=== PATIENT | male | born 1990 | race Caucasian/White ===

== ENCOUNTER 2019-01-19 12:32 | Emergency (ER) | payer SELFPAY ==
[~2019-01-19] VITALS: Ht 172.7 cm; Wt 90.7 kg
[~2019-01-19 12:32] MED LIST: ALBU90OI INH; AZIT250 PO; CITA20 PO; DIPH25 PO; ESCI10 PO; IBUP400 PO; PROM25 PO
[2019-01-19] MEDS ORDERED: Indomethacin50 MG PO ×2 (12:45→12:47)
[2019-01-19] MEDS ORDERED: PRED10 PO (12:47)
== END 2019-01-19 12:51 | disposition home or self-care (01) ==
LOC: ER 12:32
DX: M10.9 Gout, unspecified (principal); F17.200 Nicotine dependence, unspecified, uncomplicated; Z88.2 Allergy status to sulfonamides

== ENCOUNTER 2019-04-14 09:53 | Emergency (ER) | payer OTHER ==
[~2019-04-14] VITALS: Ht 172.7 cm; Wt 90.7 kg
[~2019-04-14 09:53] MED LIST changes: +Indomethacin50 MG PO; +PRED10 PO
[2019-04-14] MEDS ORDERED: LIDO700A20 TOP (10:57)
[2019-04-14] MEDS ORDERED: Robaxin-750750 MG PO (10:57)
== END 2019-04-14 11:02 | disposition home or self-care (01) ==
LOC: ER 09:53
DX: S20.212A Contusion of left front wall of thorax, initial encounter (principal); V19.9XXA Pedal cyclist (driver) (passenger) injured in unspecified traffic accident, initial encounter; Z88.2 Allergy status to sulfonamides; Z79.899 Other long term (current) drug therapy; Z79.52 Long term (current) use of systemic steroids; F17.200 Nicotine dependence, unspecified, uncomplicated
CPT/HCPCS: 71101; 99283-25

== ENCOUNTER → 2019-04-30 | Outpatient (CLI) | payer OTHER ==
[~2019-04-30] MED LIST changes: +LIDO700A20 TOP; +Robaxin-750750 MG PO
== END ==
LOC: LAB SHORT 13:31 → LAB EV 13:31
DX: M25.532 Pain in left wrist (principal)
CPT/HCPCS: 84550

== ENCOUNTER → 2019-06-09 | Outpatient (CLI) | payer OTHER ==
[~2019-06-09] MED LIST changes: +ALLO100; +CEPH500 PO; +Indomethacin25 MG PO; +MUPIROCIN15 GM TOP
[2019-06-09 09:47] LABS: BASOPHILS ABSOLUTE AUTO 0.06 K/mm3 (0.00-0.23); BASOPHILS PERCENT AUTO 1 % (0-2); EOSINOPHILS ABSOLUTE AUTO 0.34 K/mm3 (0.00-0.68); EOSINOPHILS PERCENT AUTO 5 % (0-6); Hematocrit 41.5 % (37.0-53.0); Hemoglobin 14.1 g/dL (13.5-17.5); IMMATURE GRAN ABSOLUTE AUTO 0.01 K/mm3 (0.00-0.10); IMMATURE GRAN PERCENT AUTO 0 % (0-1); LYMPHOCYTES ABSOLUTE AUTO 2.28 K/mm3 (0.84-5.20); LYMPHOCYTES PERCENT AUTO 30 % (21-46); MONOCYTES ABSOLUTE AUTO 0.81 K/mm3 (0.16-1.47); MONOCYTES PERCENT AUTO 11 % (4-13); Mean Corpuscular Volume 85 fL (80-100); Mean Platelet Volume 11.2 fL (9.1-12.4); NEUTROPHILS ABSOLUTE AUTO 4.12 K/mm3 (1.96-9.15); NEUTROPHILS PERCENT AUTO 54 % (41-73); Platelet Count 367 K/mm3 (150-400); RDW Coefficient Variation 12.8 % (11.7-14.2); RDW Standard Deviation 39.1 fL (35.1-46.3); Red Blood Cell Count 4.86 M/mm3 (4.30-5.90); White Blood Cell Count 7.62 K/mm3 (4.00-11.30)
[2019-06-09 10:01] LABS: Alanine Aminotransfer (ALT/SGP 31 U/L (12-78); Albumin, Blood 3.9 g/dL (3.4-5.0); Alk Phos 101 U/L (40-126); Anion Gap 12 mmol/L (6-16); Aspartate Aminotrans (AST/SGOT 20 U/L (12-37); Bilirubin, Total 0.3 mg/dL (0.1-1.0); Blood Urea Nitrogen 11 mg/dL (8-24); Bun/Creatinine Ratio 10.6 (12.0-20.0); CO2, Blood 24 mmol/L (21-32); Calcium, Blood 8.9 mg/dL (8.5-10.1); Chloride, Blood 104 mmol/L (98-108); Creatinine, Blood 1.04 mg/dL (0.60-1.20); Globulin, Blood 4.1 g/dL (2.2-4.0); Glomerular Filtration Rate >60 (60-); Glucose, Blood 100 mg/dL (70-99); Potassium, Blood 4.3 mmol/L (3.5-5.5); Sodium, Blood 140 mmol/L (136-145)
== END | disposition home or self-care (01) ==
LOC: LAB EV 09:41 → LAB SHORT 09:41
PROVIDERS: General Practice
DX: M10.9 Gout, unspecified (principal)
CPT/HCPCS: 80053; 85025

== ENCOUNTER → 2019-06-12 | Outpatient (CLI) | payer OTHER ==
[2019-06-12 18:12] LABS: Uric Acid, Urine 28.7 mg/dL (7.5-49.5)
== END | disposition home or self-care (01) ==
LOC: LAB 17:29 → LAB SHORT 17:29
PROVIDERS: General Practice
DX: M10.9 Gout, unspecified (principal)
CPT/HCPCS: 81050; 84560

== ENCOUNTER 2019-07-29 15:28 | Emergency (ER) | payer OTHER ==
[~2019-07-29] VITALS: Ht 170.2 cm; Wt 77.1 kg
[~2019-07-29 15:28] MED LIST changes: -ALLO100; -CEPH500 PO; -Indomethacin25 MG PO; -MUPIROCIN15 GM TOP
[2019-07-29] MEDS ORDERED: ALLO100 (16:00)
[2019-07-29] MEDS ORDERED: Indomethacin25 MG PO (16:00)
[2019-07-29] MEDS ORDERED: CEPH500 PO (16:06)
[2019-07-29] MEDS ORDERED: MUPIROCIN15 GM TOP (16:06)
== END 2019-07-29 16:27 | disposition home or self-care (01) ==
LOC: ER 15:28
DX: L60.0 Ingrowing nail (principal); Z87.891 Personal history of nicotine dependence; Z88.2 Allergy status to sulfonamides; Z79.899 Other long term (current) drug therapy
CPT/HCPCS: 99283

== ENCOUNTER 2019-12-10 19:51 | Emergency (ER) | payer OTHER ==
[~2019-12-10] VITALS: Ht 160 cm; Wt 89.8 kg
[~2019-12-10 19:51] MED LIST changes: +ALLO100; +CEPH500 PO; +Indomethacin25 MG PO; +MUPIROCIN15 GM TOP
[2019-12-10] MEDS ORDERED: ALLO100 PO (20:25)
[2019-12-10] MEDS ORDERED: HYDROCODONE-AC1 EAC1 PO (20:25)
[2019-12-10] MEDS ORDERED: Prednisone20 MG PO (20:54)
[2019-12-10] MEDS ORDERED: Indomethacin50 MG PO (20:54)
== END 2019-12-10 21:05 | disposition home or self-care (01) ==
LOC: ER 19:51
DX: M41.9 Scoliosis, unspecified (principal); Z88.2 Allergy status to sulfonamides; Z79.52 Long term (current) use of systemic steroids; Z79.899 Other long term (current) drug therapy; Z87.891 Personal history of nicotine dependence
CPT/HCPCS: 99283; J7512

== ENCOUNTER 2019-12-14 02:10 | Emergency (ER) | payer OTHER ==
[~2019-12-14] VITALS: Ht 172.7 cm; Wt 89.8 kg
[~2019-12-14 02:10] MED LIST changes: +ALLO100 PO; +HYDROCODONE-AC1 EAC1 PO; +Prednisone20 MG PO
== END 2019-12-14 04:45 | disposition home or self-care (01) ==
LOC: ER 02:10
DX: S61.012A Laceration without foreign body of left thumb without damage to nail, initial encounter (principal); Z88.2 Allergy status to sulfonamides; M10.9 Gout, unspecified; Z23 Encounter for immunization; Z79.52 Long term (current) use of systemic steroids; Z87.891 Personal history of nicotine dependence; W26.0XXA Contact with knife, initial encounter
CPT/HCPCS: 12001; 90471; 90714; 99282-25

== ENCOUNTER 2020-01-21 20:01 | Emergency (ER) | payer OTHER ==
[~2020-01-21] VITALS: Ht 172.7 cm; Wt 88.5 kg
[2020-01-21] MEDS ORDERED: Indomethacin50 MG PO (21:07)
[2020-01-21] MEDS ORDERED: Prednisone50 MG PO (21:07)
== END 2020-01-21 21:32 | disposition home or self-care (01) ==
LOC: ER 20:01
DX: M10.9 Gout, unspecified (principal); Z88.2 Allergy status to sulfonamides; Z79.891 Long term (current) use of opiate analgesic; Z79.52 Long term (current) use of systemic steroids; Z87.891 Personal history of nicotine dependence
CPT/HCPCS: 96374; 96375; 99283-25; A9270; J1170; J2405; J2930

== ENCOUNTER 2020-11-03 13:17 | Emergency (ER) | payer OTHER ==
[~2020-11-03] VITALS: Ht 172.7 cm; Wt 95.2 kg
[~2020-11-03 13:17] MED LIST changes: +Prednisone50 MG PO
[2020-11-03] MEDS ORDERED: ALLO300 PO (14:54)
[2020-11-03] MEDS ORDERED: Cetirizine HCl10 MG PO (14:54)
[2020-11-03] MEDS ORDERED: OMEP20ER (14:54)
[2020-11-03] MEDS ORDERED: Indomethacin50 MG PO ×2 (15:06→15:09)
[2020-11-03] MEDS ORDERED: Prednisone20 MG PO ×2 (15:06→15:09)
[2020-11-03] MEDS ORDERED: Norco 5-325 Ta1 EACH PO ×2 (15:06→15:09)
== END 2020-11-03 15:26 | disposition home or self-care (01) ==
LOC: ER 13:17
DX: M10.9 Gout, unspecified (principal); F17.290 Nicotine dependence, other tobacco product, uncomplicated; Z88.2 Allergy status to sulfonamides; Z79.899 Other long term (current) drug therapy
CPT/HCPCS: 36415; 96374; 99283-25; A9270-GY; J1885

== ENCOUNTER 2021-04-06 08:40 | Emergency (ER) | payer OTHER ==
[~2021-04-06] VITALS: Ht 172.7 cm; Wt 122.5 kg
[~2021-04-06 08:40] MED LIST changes: +ALLO300 PO; +Cetirizine HCl10 MG PO; +Norco 5-325 Ta1 EACH PO; +OMEP20ER
[2021-04-06] MEDS ORDERED: Veetids 500500 MG PO (09:35)
== END 2021-04-06 09:49 | disposition home or self-care (01) ==
LOC: ER 08:40
DX: K12.2 Cellulitis and abscess of mouth (principal); F17.210 Nicotine dependence, cigarettes, uncomplicated; Z88.2 Allergy status to sulfonamides; Z79.899 Other long term (current) drug therapy
CPT/HCPCS: 99283; J1100

== ENCOUNTER 2021-06-22 17:36 | Emergency (ER) | payer OTHER ==
[~2021-06-22] VITALS: Ht 170.2 cm; Wt 127.0 kg
[~2021-06-22 17:36] MED LIST changes: +Veetids 500500 MG PO
[2021-06-22 18:49] LABS: BASOPHILS ABSOLUTE AUTO 0.05 K/mm3 (0.00-0.23); BASOPHILS PERCENT AUTO 0 % (0-2); EOSINOPHILS ABSOLUTE AUTO 0.17 K/mm3 (0.00-0.68); EOSINOPHILS PERCENT AUTO 1 % (0-6); Hematocrit 47.8 % (37.0-53.0); Hemoglobin 15.9 g/dL (13.5-17.5); IMMATURE GRAN ABSOLUTE AUTO 0.03 K/mm3 (0.00-0.10); IMMATURE GRAN PERCENT AUTO 0 % (0-1); LYMPHOCYTES ABSOLUTE AUTO 1.54 K/mm3 (0.84-5.20); LYMPHOCYTES PERCENT AUTO 12 % (21-46); MONOCYTES ABSOLUTE AUTO 1.06 K/mm3 (0.16-1.47); MONOCYTES PERCENT AUTO 9 % (4-13); Mean Corpuscular HGB 28.9 pg (26.0-34.0); Mean Corpuscular HGB Conc 33.3 g/dL (31.5-36.5); Mean Corpuscular Volume 87 fL (80-100); Mean Platelet Volume 11.5 fL (9.1-12.4); NEUTROPHILS ABSOLUTE AUTO 9.54 K/mm3 (1.96-9.15); NEUTROPHILS PERCENT AUTO 77 % (41-73); Platelet Count 396 K/mm3 (150-400); RDW Standard Deviation 40.9 fL (35.1-46.3); White Blood Cell Count 12.39 K/mm3 (4.00-11.30)
[2021-06-22 19:07] LABS: Alanine Aminotransfer (ALT/SGP 150 U/L (12-78); Albumin, Blood 3.8 g/dL (3.4-5.0); Albumin/Globulin Ratio 0.8 (0.8-1.8); Alk Phos 91 U/L (50-136); Anion Gap 8 mmol/L (6-16); Aspartate Aminotrans (AST/SGOT 77 U/L (12-37); Bilirubin, Total 0.8 mg/dL (0.1-1.0); Blood Urea Nitrogen 9 mg/dL (8-24); Bun/Creatinine Ratio 11.4 (12.0-20.0); CO2, Blood 22 mmol/L (21-32); Calcium, Blood 9.4 mg/dL (8.5-10.1); Chloride, Blood 106 mmol/L (98-108); Creatinine, Blood 0.79 mg/dL (0.60-1.20); Globulin, Blood 4.6 g/dL (2.2-4.0); Glomerular Filtration Rate >60 (60-); Glucose, Blood 110 mg/dL (70-99); Potassium, Blood 4.3 mmol/L (3.5-5.5); Sodium, Blood 136 mmol/L (136-145); Total Protein, Blood 8.4 g/dL (6.4-8.2)
[2021-06-22 19:30] LABS: SARS-Cov-2 (COVID-19) PCR, MMC NEGATIVE (NEGATIVE)
[2021-06-22] MEDS ORDERED: DULOXETINE HCL60 M1 PO (22:07)
[2021-06-22] MEDS ORDERED: INDO50 PO (22:08)
[2021-06-22] MEDS ORDERED: BUSP10 PO (22:08)
== END 2021-06-23 00:51 | disposition home or self-care (01) ==
LOC: ER 17:36
PROVIDERS: Student in an Organized Health Care Education/Training Program
DX: K52.9 Noninfective gastroenteritis and colitis, unspecified (principal); E86.0 Dehydration; K21.9 Gastro-esophageal reflux disease without esophagitis; F17.290 Nicotine dependence, other tobacco product, uncomplicated; Z20.822 Contact with and (suspected) exposure to COVID-19; Z88.2 Allergy status to sulfonamides; Z79.899 Other long term (current) drug therapy
CPT/HCPCS: 36415; 80053; 83690; 85025; 96374; 99284-25; A9270; J2405; J7030; U0004

== ENCOUNTER 2021-06-28 12:10 | Emergency (ER) | payer OTHER ==
[~2021-06-28] VITALS: Ht 172.7 cm; Wt 136.1 kg
[~2021-06-28 12:10] MED LIST changes: +BUSP10 PO; +DULOXETINE HCL60 M1 PO; +INDO50 PO
[2021-06-28 13:26] LABS: BASOPHILS ABSOLUTE AUTO 0.14 K/mm3 (0.00-0.23); BASOPHILS PERCENT AUTO 1 % (0-2); EOSINOPHILS ABSOLUTE AUTO 0.47 K/mm3 (0.00-0.68); EOSINOPHILS PERCENT AUTO 2 % (0-6); Hematocrit 51.3 % (37.0-53.0); Hemoglobin 16.9 g/dL (13.5-17.5); IMMATURE GRAN ABSOLUTE AUTO 0.23 K/mm3 (0.00-0.10); IMMATURE GRAN PERCENT AUTO 1 % (0-1); LYMPHOCYTES ABSOLUTE AUTO 4.49 K/mm3 (0.84-5.20); LYMPHOCYTES PERCENT AUTO 20 % (21-46); MONOCYTES ABSOLUTE AUTO 1.53 K/mm3 (0.16-1.47); MONOCYTES PERCENT AUTO 7 % (4-13); Mean Corpuscular HGB 28.8 pg (26.0-34.0); Mean Corpuscular HGB Conc 32.9 g/dL (31.5-36.5); Mean Corpuscular Volume 87 fL (80-100); Mean Platelet Volume 11.7 fL (9.1-12.4); NEUTROPHILS ABSOLUTE AUTO 16.13 K/mm3 (1.96-9.15); NEUTROPHILS PERCENT AUTO 70 % (41-73); Platelet Count 441 K/mm3 (150-400); RDW Standard Deviation 41.8 fL (35.1-46.3); Red Blood Cell Count 5.87 M/mm3 (4.30-5.90); White Blood Cell Count 22.99 K/mm3 (4.00-11.30)
[2021-06-28 13:37] LABS: Alanine Aminotransfer (ALT/SGP 180 U/L (12-78); Albumin, Blood 4.2 g/dL (3.4-5.0); Albumin/Globulin Ratio 0.9 (0.8-1.8); Alk Phos 141 U/L (50-136); Anion Gap 9 mmol/L (6-16); Aspartate Aminotrans (AST/SGOT 120 U/L (12-37); Bilirubin, Total 0.2 mg/dL (0.1-1.0); Blood Urea Nitrogen 8 mg/dL (8-24); Bun/Creatinine Ratio 11.1 (12.0-20.0); CO2, Blood 21 mmol/L (21-32); Calcium, Blood 9.8 mg/dL (8.5-10.1); Chloride, Blood 108 mmol/L (98-108); Creatinine, Blood 0.72 mg/dL (0.60-1.20); Globulin, Blood 4.8 g/dL (2.2-4.0); Glomerular Filtration Rate >60 (60-); Glucose, Blood 119 mg/dL (70-99); Potassium, Blood 3.6 mmol/L (3.5-5.5); Sodium, Blood 138 mmol/L (136-145)
[2021-06-28 17:22] LABS: Source, Urine Clean Catch
[2021-06-28 17:27] LABS: Appearance, Urine Clear (Clear); Bilirubin, Urine Neg (Neg); Blood, Urine 2+ (Neg); Color, Urine Yellow (P-Yellow); Glucose Qualitative, Urine Neg (Neg); Ketones, Urine Neg (Neg); Leukocyte Esterase, Urine Neg (Neg); Nitrite, Urine Neg (Neg); Protein, Urine 3+ (Neg); Specific Gravity, Urine 1.015 (1.003-1.022); Urobilinogen, Urine NORM (Normal)
[2021-06-28 17:39] LABS: Bacteria Not Seen /hpf; Red Blood Cells, Urine 0-2 /hpf (0-2); Squamous Epithelial Cells Rare /hpf (Few); White Blood Cells, Urine 0-2 /hpf (0-5)
[2021-06-28] MEDS ORDERED: ARIPIPRAZOLE20 MG PO (18:28)
[2021-06-28] MEDS ORDERED: HYDPAM25 PO (18:29)
[2021-06-28] MEDS ORDERED: TRAZ50 PO (18:30)
[2021-06-28 22:19] LABS: Adenovirus F 40/41 Not Detected (NOT DETECT); Astrovirus Not Detected (NOT DETECT); Campylobacter Sp Not Detected (NOT DETECT); Cryptosporidium Not Detected (NOT DETECT); Cyclospora Cayetanensis Not Detected (NOT DETECT); E. Coli O157 Not Detected (NOT DETECT); Entamoeba Histolytica Not Detected (NOT DETECT); Enteroaggregative E. coli-EAEC Not Detected (NOT DETECT); Enteropathogenic E. coli-EPEC Not Detected (NOT DETECT); Enterotoxigenic E. coli-ETEC Not Detected (NOT DETECT); Giardia Lamblia Not Detected (NOT DETECT); Norovirus GI/GII Not Detected (NOT DETECT); Plesiomonas Shigelloides Not Detected (NOT DETECT); Rotavirus A Not Detected (NOT DETECT); Salmonella Sp Not Detected (NOT DETECT); Sapovirus Not Detected (NOT DETECT); Shiga Toxin-prod E. coli-STEC Not Detected (NOT DETECT); Shigella/Enteroin E. coli-EIEC Not Detected (NOT DETECT); Vibrio Cholerae Not Detected (NOT DETECT); Vibrio Sp Not Detected (NOT DETECT); Yersinia Enterocolitica Not Detected (NOT DETECT)
[2021-06-28] MEDS ORDERED: PROMETHAZINE12.5 M1 PO (22:30)
== END 2021-06-29 00:25 | disposition home or self-care (01) ==
LOC: ER 12:10
PROVIDERS: Physician Assistant
DX: R11.2 Nausea with vomiting, unspecified (principal); K76.0 Fatty (change of) liver, not elsewhere classified; R19.7 Diarrhea, unspecified; R00.0 Tachycardia, unspecified; R74.02 Elevation of levels of lactic acid dehydrogenase [LDH]; K21.9 Gastro-esophageal reflux disease without esophagitis; F17.290 Nicotine dependence, other tobacco product, uncomplicated
CPT/HCPCS: 0097U; 74177; 76705; 80053; 81001; 83605; 83690; 85025; 96374; 96375; 99285-25; A9270; J2405; J2550; J3010; J7030; J7120; Q9967

== ENCOUNTER → 2021-09-10 | Outpatient (CLI) | payer OTHER ==
[~2021-09-10] MED LIST changes: +ARIPIPRAZOLE20 MG PO; +HYDPAM25 PO; +PROMETHAZINE12.5 M1 PO; +Percocet 5-3251 EACH PO; +TRAZ50 PO
== END | disposition home or self-care (01) ==
LOC: LAB SHORT 18:09 → LAB 18:09
DX: B35.6 Tinea cruris (principal); L30.4 Erythema intertrigo; L98.499 Non-pressure chronic ulcer of skin of other sites with unspecified severity
CPT/HCPCS: 87070; 87075; 87205

== ENCOUNTER 2021-09-12 09:57 | Emergency (ER) | payer OTHER ==
[~2021-09-12] VITALS: Ht 172.7 cm; Wt 136.1 kg
[~2021-09-12 09:57] MED LIST changes: -Percocet 5-3251 EACH PO
[2021-09-12] MEDS ORDERED: Percocet 5-3251 EACH PO (10:34)
== END 2021-09-12 11:05 | disposition home or self-care (01) ==
LOC: ER 09:57
DX: S80.02XA Contusion of left knee, initial encounter (principal); S80.01XA Contusion of right knee, initial encounter; M10.9 Gout, unspecified; K21.9 Gastro-esophageal reflux disease without esophagitis; F17.290 Nicotine dependence, other tobacco product, uncomplicated; W22.8XXA Striking against or struck by other objects, initial encounter
CPT/HCPCS: 82947; 99283; A9270; J7512

== ENCOUNTER → 2021-09-23 | Outpatient (CLI) | payer OTHER ==
[~2021-09-23] MED LIST changes: +Percocet 5-3251 EACH PO
[2021-09-23 20:18] LABS: Alanine Aminotransfer (ALT/SGP 126 U/L (12-78); Albumin, Blood 3.6 g/dL (3.4-5.0); Albumin/Globulin Ratio 0.8 (0.8-1.8); Alk Phos 123 U/L (50-136); Anion Gap 6 mmol/L (6-16); Aspartate Aminotrans (AST/SGOT 57 U/L (12-37); Bilirubin, Total 0.3 mg/dL (0.1-1.0); Blood Urea Nitrogen 10 mg/dL (8-24); Bun/Creatinine Ratio 10.3 (12.0-20.0); CO2, Blood 28 mmol/L (21-32); Calcium, Blood 10.3 mg/dL (8.5-10.1); Chloride, Blood 106 mmol/L (98-108); Creatinine, Blood 0.97 mg/dL (0.60-1.20); Globulin, Blood 4.8 g/dL (2.2-4.0); Glomerular Filtration Rate >60 (60-); Glucose, Blood 95 mg/dL (70-99); Potassium, Blood 4.2 mmol/L (3.5-5.5); Sodium, Blood 140 mmol/L (136-145); Total Protein, Blood 8.4 g/dL (6.4-8.2)
== END | disposition home or self-care (01) ==
LOC: LAB 18:00 → LAB SHORT 18:00
PROVIDERS: Physician Assistant
DX: R74.01 Elevation of levels of liver transaminase levels (principal)
CPT/HCPCS: 80053; 83880

== ENCOUNTER 2021-10-13 18:49 | Emergency (ER) | payer OTHER ==
[~2021-10-13] VITALS: Ht 172.7 cm; Wt 136.1 kg
[2021-10-13 19:32] LABS: BASOPHILS ABSOLUTE AUTO 0.12 K/mm3 (0.00-0.23); BASOPHILS PERCENT AUTO 1 % (0-2); EOSINOPHILS ABSOLUTE AUTO 0.34 K/mm3 (0.00-0.68); EOSINOPHILS PERCENT AUTO 3 % (0-6); Hematocrit 43.2 % (37.0-53.0); Hemoglobin 14.1 g/dL (13.5-17.5); IMMATURE GRAN ABSOLUTE AUTO 0.09 K/mm3 (0.00-0.10); IMMATURE GRAN PERCENT AUTO 1 % (0-1); LYMPHOCYTES PERCENT AUTO 25 % (21-46); MONOCYTES PERCENT AUTO 8 % (4-13); Mean Corpuscular HGB 27.2 pg (26.0-34.0); Mean Corpuscular HGB Conc 32.6 g/dL (31.5-36.5); Mean Corpuscular Volume 83 fL (80-100); NEUTROPHILS ABSOLUTE AUTO 8.17 K/mm3 (1.96-9.15); NEUTROPHILS PERCENT AUTO 63 % (41-73); Platelet Count 477 K/mm3 (150-400); RDW Coefficient Variation 14.1 % (11.7-14.2); RDW Standard Deviation 42.5 fL (35.1-46.3); Red Blood Cell Count 5.18 M/mm3 (4.30-5.90); White Blood Cell Count 12.92 K/mm3 (4.00-11.30)
[2021-10-13 20:02] LABS: Alanine Aminotransfer (ALT/SGP 109 U/L (12-78); Albumin, Blood 3.6 g/dL (3.4-5.0); Albumin/Globulin Ratio 0.8 (0.8-1.8); Alk Phos 121 U/L (50-136); Anion Gap 7 mmol/L (6-16); Aspartate Aminotrans (AST/SGOT 51 U/L (12-37); Bilirubin, Total 0.4 mg/dL (0.1-1.0); Blood Urea Nitrogen 11 mg/dL (8-24); Bun/Creatinine Ratio 11.6 (12.0-20.0); CO2, Blood 26 mmol/L (21-32); Calcium, Blood 9.5 mg/dL (8.5-10.1); Chloride, Blood 104 mmol/L (98-108); Creatinine, Blood 0.95 mg/dL (0.60-1.20); Globulin, Blood 4.8 g/dL (2.2-4.0); Glomerular Filtration Rate >60 (60-); Glucose, Blood 101 mg/dL (70-99); Potassium, Blood 4.1 mmol/L (3.5-5.5); Sodium, Blood 137 mmol/L (136-145); Total Protein, Blood 8.4 g/dL (6.4-8.2)
== END 2021-10-13 23:20 | disposition home or self-care (01) ==
LOC: ER 18:49
PROVIDERS: Physician Assistant
DX: K62.5 Hemorrhage of anus and rectum (principal); K21.9 Gastro-esophageal reflux disease without esophagitis; Z88.2 Allergy status to sulfonamides; Z88.8 Allergy status to other drugs, medicaments and biological substances; Z88.5 Allergy status to narcotic agent; Z79.899 Other long term (current) drug therapy
CPT/HCPCS: 36415; 74177; 80053; 85025; 86850; 86900; 86901; 99284-25; Q9967

== ENCOUNTER 2021-11-02 06:55 | Day surgery (SDC) | payer OTHER ==
[~2021-11-02] VITALS: Ht 172.7 cm; Wt 131.1 kg
[2021-11-02] MEDS ORDERED: TRAM50 (07:39)
--- NOTE | 2021-11-02 09:47 | NUR ---
11/02/21 0947 Ara Jarrell PT. VERBALIZES HAVING A "9" HEADACHE. PT. VERBALIZES USUALLY DRINKS CAFFEINE. PT. ALSO INSTRUCTED ALSO IT COULD BE FROM NOT EATING. PT. ALSO C/O HAVING A SORE THROAT. PT. INSTRUCTED HE COULD HAVE A SORE THROAT FOR A DAY OR SO, THAT SOME PEOPLE GET A SORE THROAT FROM THE SCOPE GOING DOWN. PT.DRINKING APPLE JUICE WITHOUT ANY PROPBLEMS. PT. ALSO HAS GOUT & PAINFUL FROM NOT TAKING HIS PAIN MEDS. PT. INSTRUCTED HE COULD GO HOME & TAKE HIS MEDICATIONS.
== END 2021-11-02 09:30 | disposition home or self-care (01) ==
LOC: ORSCSDS 06:55
PROVIDERS: Student in an Organized Health Care Education/Training Program
PROC: 0DB48ZX Excision of Esophagogastric Junction, Via Natural or Artificial Opening Endoscopic, Diagnostic (ICD-10-PCS; principal; 2021-11-02 08:00)
PROC: 0DBE8ZX Excision of Large Intestine, Via Natural or Artificial Opening Endoscopic, Diagnostic (ICD-10-PCS; principal; 2021-11-02 08:00)
PROC: 0DB78ZX Excision of Stomach, Pylorus, Via Natural or Artificial Opening Endoscopic, Diagnostic (ICD-10-PCS; principal; 2021-11-02 08:00)
PROC: 0DB98ZX Excision of Duodenum, Via Natural or Artificial Opening Endoscopic, Diagnostic (ICD-10-PCS; principal; 2021-11-02 08:00)
DX: R19.7 Diarrhea, unspecified (principal); R11.2 Nausea with vomiting, unspecified; R74.01 Elevation of levels of liver transaminase levels; K57.30 Diverticulosis of large intestine without perforation or abscess without bleeding; K64.4 Residual hemorrhoidal skin tags; I10 Essential (primary) hypertension; K21.9 Gastro-esophageal reflux disease without esophagitis; Z79.899 Other long term (current) drug therapy; F41.8 Other specified anxiety disorders; E66.01 Morbid (severe) obesity due to excess calories; Z68.41 Body mass index [BMI] 40.0-44.9, adult
CPT/HCPCS: 88305; 88342; J2704; J7120

== ENCOUNTER 2022-01-04 12:20 | Emergency (ER) | payer OTHER ==
[~2022-01-04] VITALS: Ht 172.7 cm; Wt 136.1 kg
[~2022-01-04 12:20] MED LIST changes: +TRAM50
[2022-01-04 14:25] LABS: Source, Urine Clean Catch
[2022-01-04 14:25] LABS: BASOPHILS ABSOLUTE AUTO 0.13 K/mm3 (0.00-0.23); BASOPHILS PERCENT AUTO 1 % (0-2); EOSINOPHILS ABSOLUTE AUTO 0.93 K/mm3 (0.00-0.68); EOSINOPHILS PERCENT AUTO 8 % (0-6); Hematocrit 46.7 % (37.0-53.0); Hemoglobin 15.3 g/dL (13.5-17.5); IMMATURE GRAN ABSOLUTE AUTO 0.06 K/mm3 (0.00-0.10); IMMATURE GRAN PERCENT AUTO 1 % (0-1); LYMPHOCYTES ABSOLUTE AUTO 2.84 K/mm3 (0.84-5.20); LYMPHOCYTES PERCENT AUTO 24 % (21-46); MONOCYTES ABSOLUTE AUTO 0.83 K/mm3 (0.16-1.47); MONOCYTES PERCENT AUTO 7 % (4-13); Mean Corpuscular HGB Conc 32.8 g/dL (31.5-36.5); Mean Corpuscular Volume 82 fL (80-100); Mean Platelet Volume 11.3 fL (9.1-12.4); NEUTROPHILS ABSOLUTE AUTO 7.09 K/mm3 (1.96-9.15); NEUTROPHILS PERCENT AUTO 60 % (41-73); Platelet Count 378 K/mm3 (150-400); RDW Coefficient Variation 14.5 % (11.7-14.2); RDW Standard Deviation 43.1 fL (35.1-46.3); Red Blood Cell Count 5.67 M/mm3 (4.30-5.90); White Blood Cell Count 11.88 K/mm3 (4.00-11.30)
[2022-01-04 14:50] LABS: Alanine Aminotransfer (ALT/SGP 90 U/L (12-78); Albumin, Blood 4.1 g/dL (3.4-5.0); Alk Phos 101 U/L (50-136); Anion Gap 5 mmol/L (6-16); Aspartate Aminotrans (AST/SGOT 53 U/L (12-37); Bilirubin, Total 0.4 mg/dL (0.1-1.0); Blood Urea Nitrogen 11 mg/dL (8-24); CO2, Blood 23 mmol/L (21-32); Calcium, Blood 9.2 mg/dL (8.5-10.1); Chloride, Blood 108 mmol/L (98-108); Creatinine, Blood 0.84 mg/dL (0.60-1.20); Ethanol (Alcohol), Blood, Med <3 mg/dL; Globulin, Blood 4.2 g/dL (2.2-4.0); Glomerular Filtration Rate >60 (60-); Glucose, Blood 95 mg/dL (70-99); Potassium, Blood 3.9 mmol/L (3.5-5.5); Sodium, Blood 136 mmol/L (136-145); Total Protein, Blood 8.3 g/dL (6.4-8.2)
[2022-01-04 14:53] LABS: Appearance, Urine Clear (Clear); Bilirubin, Urine Neg (Neg); Blood, Urine Neg (Neg); Color, Urine Yellow (P-Yellow); Glucose Qualitative, Urine Neg (Neg); Ketones, Urine Neg (Neg); Leukocyte Esterase, Urine Neg (Neg); Nitrite, Urine Neg (Neg); Protein, Urine Neg (Neg); Specific Gravity, Urine 1.025 (1.003-1.022); Urobilinogen, Urine NORM (Normal)
[2022-01-04 15:00] LABS: Acetaminophen, Random <2.0 ug/mL (10.0-30.0)
[2022-01-04 15:28] LABS: U Amphetamine Screen Not Detected; U Barbituate Screen Not Detected; U Benzodiazapine Screen Not Detected; U Buprenorphine Screen Not Detected; U Cannabinoids Screen DETECTED; U Cocaine Screen Not Detected; U Methadone Screen Not Detected; U Methamphetamine Screen Not Detected; U Opiates Screen Not Detected; U Oxycodone Screen Not Detected; U Phencyclidine Screen Not Detected; U Propoxyphene Screen Not Detected
[2022-01-04] MEDS ORDERED: BUSP10 (16:20)
[2022-01-04] MEDS ORDERED: DULO60 PO ×2 (16:20→17:08)
[2022-01-04] MEDS ORDERED: ABILIFY MYCITE10 M2 (16:21)
[2022-01-04] MEDS ORDERED: BUSP10 PO (17:08)
[2022-01-04] MEDS ORDERED: ABILIFY MYCITE10 M2 PO (17:08)
[2022-01-04] MEDS ORDERED: Hydroxyzine HCl50 MG PO (17:08)
== END 2022-01-04 17:21 | disposition home or self-care (01) ==
LOC: ER 12:20
PROVIDERS: Physician Assistant
DX: Z76.0 Encounter for issue of repeat prescription (principal); F41.9 Anxiety disorder, unspecified; R44.1 Visual hallucinations; M10.9 Gout, unspecified; F32.A Depression, unspecified; K21.9 Gastro-esophageal reflux disease without esophagitis; F17.290 Nicotine dependence, other tobacco product, uncomplicated; Z88.2 Allergy status to sulfonamides; Z88.5 Allergy status to narcotic agent; Z88.8 Allergy status to other drugs, medicaments and biological substances; Z79.899 Other long term (current) drug therapy; Z91.048 Other nonmedicinal substance allergy status
CPT/HCPCS: 36415; 80053; 81003; 85025; 93005; 93010; 96374; 99285-25; G0480; J2060; Q3014